=== PATIENT | female | born 1980 | race Caucasian/White ===

== ENCOUNTER 2023-08-30 08:24 | Outpatient (CLI) | payer OTHER, SELFPAY ==
[2023-08-30 10:01] LABS: Hematocrit 42.8 % (37.0-47.0); Hemoglobin 13.8 g/dL (12.0-15.0)
== END 2023-08-30 08:25 | disposition home or self-care (01) ==
LOC: ANHSURGERY 08:32
PROVIDERS: PCP Nurse Practitioner; Visit Provider Obstetrics & Gynecology
DX: Z01.818 Encounter for other preprocedural examination (principal); R10.2 Pelvic and perineal pain; E78.00 Pure hypercholesterolemia, unspecified
CPT/HCPCS: 36415; 85014; 85018; 86850; 86900; 86901

== ENCOUNTER 2023-09-01 05:34 | Day surgery (SDC) | payer OTHER, SELFPAY ==
[2023-08-28 09:24] VITALS: BMI 28.3
--- NOTE | 2023-08-28 09:30 | PC.NURSE ---
Report to the Outpatient Waiting Room, entrance under the green pavilion located off [facility], at time 9:30 on date 09/01/23. Planned Procedure Time: 11:30. Time changes happen often and if your time is changed the preop area will call you the afternoon before. - You and your visitor will be asked to self-screen and do not enter if you have any COVID symptoms. - A mask is optional within the hospital at this time. Patients may have clear liquids (water, carbonated beverages, clear teas, apple juice) until 3 hours prior to surgery (8:30) with a maximum of 20 ounces. - No food from midnight until time of surgery Take the following medications with a SIP of water the morning of surgery: NONE DO NOT STOP ANY OF YOUR OTHER PRESCRIPTION MEDICATIONS PRIOR TO SURGERY ?EXCEPT THE FOLLOWING Medications to discontinue per physician: N/A Date to take last dose: N/A Please no make-up, nail belgian, hairspray, perfume, deodorant, or body powder the day of surgery. No jewelry (including any body piercings) or valuables the day of surgery, leave them at home. Please take a shower or bath the night before, or the morning of, surgery with an antibacterial soap. Wear comfortable, loose fitting clothing. - Jewelry must be removed prior to entering the operating room. Rings and piercings that are not removed may be cut off. - The hospital will not accept responsibility for valuables. - Please leave all valuables, including medications, at home the day of surgery. If you are going home after surgery, a licensed substitute bus driver must drive you home. - NO public transportation without another adult if you receive anesthesia. - We recommend that an adult stay with you for 24 hours following discharge. - We also recommend that you do not drive, make important decision, drink alcoholic beverages, or take any drugs that were not prescribed by your health care provider for at least 24 hours after your discharge time. Follow any additional instructions given to you from your surgeon. If you or anyone in your household have experienced Covid symptoms in the past week, please notify your surgeon or the nurse liaison at the phone number below for possible testing. Telephone instructions given to DEANNA ORELLANA and asked if any additional questions and then verbalized understanding. Patient advised to call surgeon office or pre surgery nurse liaison [phone] if any additional questions.
--- NOTE | 2023-08-29 07:50 | P.HP_ITS ---
H&P: HPI History of Present Illness Date/Time: 08/29/23 07:50 Chief Complaint: Pelvic pain/endometriosis/right Bartholin's cyst/dyspareunia/irregular bleeding Narrative: 42-year-old female admitted for diagnostic laparoscopy hysteroscopy dilatation and curettage and excision of right Bartholin cyst. This patient has had pain discomfort and dyspareunia for some time. Ultrasound has been unhelpful and cultures have been negative. Hormonal therapy has also been uncomplicated did. Risks and benefits of this procedure were reviewed including but not exclusive of , aspiration pneumonia, bleeding, transfusion, perforation injury to bowel, bladder, ureters, or other internal organs with need for open laparotomy. She received the [facility] handouts entitled hysteroscopy laparoscopy and dilatation and curettage respectively. She had all questions answered and asked to proceed [facility] Social History Social History Smoking packs per day: 1 Smoking cigarettes per day: 20.0 Years smoked: 20 Smoking pack-years: 20.00 Smoking status: Current every day smoker Tobacco type: cigarettes Alcohol intake: current Drinks per week: 6 Substance use: never Substance use type: does not use Living arrangements: with family Spiritual care concerns: No Meds Home Medications and Allergies Home Medications Medication Instructions Recorded Confirmed Type rosuvastatin 20 mg tablet 20 mg PO HS 08/28/23 08/28/23 History Allergies Allergy/AdvReac Type Severity Reaction Status Date / Time Penicillins Allergy Mild Rash Verified 08/28/23 09:23 Exam Const: General: cooperative, healthy appearing and comfortable Nutritional Appearance: average body habitus Orientation/consciousness: oriented to person, oriented to place and oriented to time Resp: Effort & Inspection: normal respiratory effort Cardio: Rate: regular rate Rhythm: regular rhythm Heart sounds: S1 normal heart sound present and S2 normal heart sound present GI: Inspection: normal to inspection : External Female Exam: normal external appearance and other (Right-sided Adeline's gland abscess) Speculum Exam - Vagina: normal appearance of the vagina Speculum Exam - Cervix: normal appearance of the cervix Bimanual exam- vagina & uterus: uterine shape normal Bimanual Exam- Adnexa, other: tender bilaterally Assessment and Plan Assessment and plan (1) Pelvic pain: Code(s): R10.2 - Pelvic and perineal pain Status: Acute (2) Irregular bleeding: Code(s): N92.6 - Irregular menstruation, unspecified Status: Acute (3) Dyspareunia: Status: Acute (4) Bartholin's gland abscess: Code(s): N75.1 - Abscess of Bartholin's gland Status: Acute (5) Endometriosis: Code(s): N80.9 - Endometriosis, unspecified Status: Acute Plan Laparoscopy/hysteroscopy/dilatation and curettage/drainage of our or the lens gland abscess
[2023-09-01] VITALS (9 sets, daily range): BP systolic 95–135; BP diastolic 57–95; PULSE 66–98; RESP 14–22; TEMP 36.2–36.5; O2SAT 90–100; BMI 28.1
--- NOTE | 2023-09-01 06:39 | WPDHPUPDATE1 ---
History and Physical Update Update Date/Time: 09/01/23 06:39 History and Physical has been reviewed, including an updated exam of the patient. There are NO changes in the patient's condition. Risks, benefits, and alternatives have been discussed and questions answered. Patient agrees to proceed with procedure.
[2023-09-01] MEDS: LACTATED RINGERS 1,000 ML 30 ML IV CONT ×2 (10:40→14:11)
--- NOTE | 2023-09-01 10:45 | P.PNAN_ITS ---
Anes - Initial Pre Proc Eval Procedure: Operation Date: 09/01/23 11:30 Proposed Procedures p Diagnostic Laparoscopy, Hysteroscopy Dilatation and Curettage, - Valdemar Kemp MD s Incision and Drainage of Bartholin's Gland Cyst with Word Catheter - Valdemar Kemp MD Date/Time: 09/01/23 10:45 Surgeon: Valdemar Kemp MD Pre Op Diagnosis: pelvic pain,endometr,irreg bleeding,Bartholin cyst Patient Data Age: 42 Gender: F Height: 1.63 m Weight: 74.85 kg Allergies Allergy/AdvReac Type Severity Reaction Status Date / Time Penicillins Allergy Mild Rash Verified 08/28/23 09:23 Home Medications Medication Instructions Recorded Confirmed Type rosuvastatin 20 mg tablet 20 mg PO HS 08/28/23 08/28/23 History hydrocodone 5 mg-acetaminophen 325 1 tablet PO Q4H PRN pain #30 tabs 09/01/23 Rx mg tablet Patient hx anesthesia problems: none Family hx anesthesia problems: none Results Review: All pre-operative results and documents have been reviewed as part of the pre- operative evaluation. [facility] Social History Social History Smoking packs per day: 1 Smoking cigarettes per day: 20.0 Years smoked: 20 Smoking pack-years: 20.00 Smoking status: Current every day smoker Tobacco type: cigarettes Alcohol intake: current Drinks per week: 6 Substance use: never Substance use type: does not use Living arrangements: with family Spiritual care concerns: No Anes - Eval Final PreProcedure Day of Procedure 09/01/23 10:45 Patient weight: normal Heart: regular rate and rhythm Lungs: clear to auscultation Airway: Mallampati scale class II Neurological: alert and oriented Last oral intake: >/= 8 hours ASA classification: II Emergent: no Anesthetic plan: proceed Anesthesia type and monitoring: general ETT and standard monitoring Results Review: All pre-operative results and documents have been reviewed as part of the pre- operative evaluation. Informed Consent: The patient's anesthetic plan and its attendant risks and benefits were discussed with the patient/family/POA. Questions were solicited and answers provided to the satisfaction of the patient/family/POA.
[2023-09-01] MEDS: ACETAMINOPHEN 500 MG TABLET 1000 MG PO (10:47)
[2023-09-01] MEDS: KETOROLAC 15 MG/ML VIAL (*BKC) IV PUSH (10:48)
[2023-09-01] MEDS: LIDOCAINE HCL 1% LOCAL INJ 20 ML VIAL INFILTRATE (12:18)
--- NOTE | 2023-09-01 12:51 | P.OP_ITS ---
Procedure Note - Detailed Date of Procedure 09/01/23 Pre-op Diagnosis pelvic pain,endometr,irreg bleeding,Bartholin cyst Post-op Diagnosis Same Procedure Performed Laparoscopic destruction of endometriosis with lysis of adhesions hysteros copy/dilatation and curettage/removal of right Bartholin gland abscess Surgeon Valdemar Kemp MD Anesthesia General Indications 42-year-old female with large right-sided partial gland abscess irregular bleeding and pelvic pain Findings Endometriosis was seen in cul-de-sac: Attached to the posterior surface of the uterus. Bilaterally the adherent to the ovarian fossa is. Hysteroscopy the uterus sounded to 8cm. Irregular endometrial tissue was noted but no evidence of polyps or other abnormalities. A right-sided Bartholin gland abscess was noted. Description of Procedure Patient was prepped draped in sterile fashion placed in dorsal lithotomy position. Under excellent general trach anesthesia weighted speculum placed in posterior fornix vagina. Anterior lip of cervix grasped with a single-tooth tenaculum. The Box's cannula inserted the cervix and attached to the single- tooth. This was to be used later for uterine manipulation. The bladder was drained of clear urine. The weighted speculum was removed and the gloves were changed. An infraumbilical incision made the Veress needle passed in the abdomen. Abdomen filled with CO2 gas [id number]. The 5mm trocar advanced under direct visualization with the optic scope in no injury seen. Patient placed in Trendelenburg and a suprapubic incision made. The 5mm trocar advanced under direct visualization assuring no injury. The above findings were seen. Using sharp dissection ovaries were sharply and bluntly dissected away from the lateral sidewalls. In the cul-de-sac below the colon was adherent to the posterior surface of the cul-de-sac and the small amount of the cervix. The areas of endometriosis were cauterized at 35 w per 2nd vigorous irrigation was undertaken and no other abnormalities were seen photo documentation undertaken. The lower site removed. The gas removed from the abdomen. The upper site removed the incisions closed with 4 Monocryl glue. Attention was then turned back to the vagina. The right porcelain abscess gland was palpated. Making a linear incision inside the vagina the vagina was opened until the her contreras of the cyst could be palpated. This was then grasped with a clamp. The entire gland was removed by carefully dissecting the outside and passed off. The vagina was then closed with continuous running 2-0 Vicryl. Blood loss was estimated at5cc. All sponge, needle sponge counts were correct. There were no immediate complications Estimated Blood Loss 5 Drains No Packing No Pathology Yes Complications No immediate complications Condition Stable Disposition PACU
[2023-09-01] MEDS: ONDANSETRON INJ 4 MG/2 ML VIAL IV PUSH (13:05)
[2023-09-01] MEDS: fentaNYL CITRATE INJ (*CRX) 100 MCG/2 ML VIAL 25 MCG IV PUSH ×6 (13:05→13:28)
[2023-09-01] MEDS: HYDROmorphone HCL INJ (*CRX) 1 MG/ML SYR 0.5 MG IV PUSH ×3 (13:40→13:51)
[2023-09-01] MEDS: diphenhydrAMINE HCl INJ 50 MG/ML VIAL 12.5 MG IV PUSH ×2 (14:02→14:43)
[2023-09-01] MEDS: SCOPOLAMINE 1.5 MG PATCH TRANSDERM (14:44)
== END 2023-09-01 15:24 | disposition home or self-care (01) ==
PROVIDERS: PCP Nurse Practitioner; Visit Provider Obstetrics & Gynecology
PROC: 0UDB8ZZ Extraction of Endometrium, Via Natural or Artificial Opening Endoscopic (ICD-10-PCS; CPT 58558; principal; 2023-09-01 11:30)
PROC: (CPT 56440; 2023-09-01 11:30)
DX: N75.0 Cyst of Bartholin's gland (principal); N80.329 Endometriosis of the posterior cul-de-sac, unspecified depth; N73.6 Female pelvic peritoneal adhesions (postinfective); N94.10 Unspecified dyspareunia; F17.210 Nicotine dependence, cigarettes, uncomplicated; F10.90 Alcohol use, unspecified, uncomplicated
CPT/HCPCS: 58662; 56740; 58558; 36415; 85014; 85018; 86850; 86900; 86901; 88305; A9270; J0330; J1100; J1170; J1200; J1885; J2250; J2405; J2704; J3010; J7120

== ENCOUNTER 2024-03-09 14:22 | Emergency (ER) | payer OTHER, SELFPAY ==
[2024-03-09 14:39] VITALS: BP 123/80; PULSE 81; RESP 16; TEMP 36.5; O2SAT 97
--- NOTE | 2024-03-09 14:57 | ED.EYEPROB ---
HPI - Eye Problem General Chief complaint: Eye Problems Stated complaint: rt eye irritation Time Seen by Provider: 03/09/24 14:29 Source: patient Mode of arrival: ambulatory Limitations: no limitations History of Present Illness HPI Narrative: 43-year-old female presents to [facility] with complaints of irritation, photophobia, foreign body sensation and watering to her right eye for the past few hours. 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 Patient reports that she attempted to irrigate her eye as well as take her contacts out and continues with the symptoms. Patient denies visual changes, purulent drainage, redness, fever, body aches, chills, nausea vomiting or diarrhea. MD chief complaint: eye pain Onset (ago): hour(s) (3) Location: right eye Eye Symptoms: foreign body sensation and photophobia Place: home Mechanism: none Treatments Prior to Arrival: irrigated eye Related Data Home Medications Medication Instructions Recorded Confirmed rosuvastatin 20 mg tablet 20 mg PO HS 08/28/23 03/09/24 albuterol 90 mcg-budesonide 80 2 inh inhalation ONCE 02/07/24 03/09/24 mcg/actuation HFA aerosol inhaler Allergies Allergy/AdvReac Type Severity Reaction Status Date / Time Penicillins Allergy Mild Rash Verified 03/09/24 14:42 Review of Systems Constitutional: Constitutional: Denies chills, Denies fatigue, Denies fever(s) and Denies weakness Eyes: Eyes: Reports photophobia Comments: Watery discharge, right eye irritation ENT: Denies dizziness Respiratory: Respiratory: Denies cough, Denies dyspnea and Denies wheezing Gastrointestinal: Gastrointestinal: Denies diarrhea, Denies nausea and Denies vomiting Musculoskeletal: Musculoskeletal: Denies arthralgias and Denies joint swelling Integumentary/Breasts: Skin/Breast: Denies erythema and Denies rash Neurologic: Denies dizziness, Denies syncope and Denies headache(s) Allergic/Immunologic: Allergic/Immunologic: Denies throat swelling, Denies tongue swelling and Denies wheezing [facility] Family History Family History Father Diabetes mellitus Mother Cerebrovascular accident Heart problem Grandparent Heart problem Grandparent Diabetes mellitus Heart problem Social History Social History Smoking packs per day: 1 Smoking cigarettes per day: 20.0 Years smoked: 20 Smoking pack-years: 20.00 Smoking status: Current every day smoker Tobacco type: cigarettes Alcohol intake: current Drinks per week: 6 Substance use: never Substance use type: does not use Do You Feel Safe in your Home?: Yes Lack of Transportation: No Lack of Food: Never True Current Housing: I Have Housing Concerned About Future Housing: No Difficulty Paying Gas/Electric Bills: No Difficulty Paying for Meds: No Currently Unemployed: YES Education: Associate Degree Difficulty w/ Childcare or Family Care: No Living arrangements: with family Occupation/Education: unemployed Gender identity (if verbalized by the patient): Female Sexual Orientation (if Verbalized by the Patient): Straight or Heterosexual Spiritual care concerns: No Agree to blood products: Yes Comments At time of signature, I agree with nursing past medical, surgical, social and family history. There is no relevant family history pertinent to the presenting complaint. Exam Const: General: healthy appearing and no acute distress Nutritional Appearance: well nourished Orientation/consciousness: patient oriented x3 Limitations: no limitations HENMT: Head: normal to inspection Ears: external ears normal Teeth and gingiva: dentition normal Throat: posterior oropharynx normal and uvula midline Eyes: Conjunctivae: conjunctival abnormality right conjunctival injection (Minimal erythema noted to right eye )
[2024-03-09] MEDS: TETRACAINE HCL 0.5% OPHTH SOLN 4 ML BTL AFFCTD EYE (15:01)
[2024-03-09] MEDS: FLUORESCEIN SOD 1 MG/STRIP AFFCTD EYE (15:01)
[2024-03-09] MEDS: DACRIOSE EYE IRRIGATION 118 ML BOTTLE AFFCTD EYE (15:01)
== END 2024-03-09 15:30 | disposition home or self-care (01) ==
PROVIDERS: Emergency Provider Nurse Practitioner Family; PCP Family Medicine
DX: H57.8A1 Foreign body sensation, right eye (principal); H57.11 Ocular pain, right eye; F17.210 Nicotine dependence, cigarettes, uncomplicated
CPT/HCPCS: 99213; A9270; G0463